=== PATIENT | female | born 1965 | race Caucasian/White ===

== ENCOUNTER 2017-02-10 15:58 | Emergency (ER) | payer SELFPAY ==
[~2017-02-10] VITALS: Ht 157.5 cm; Wt 63.0 kg
[2017-02-10 16:00] VITALS: BP 137/82; PULSE 90; RESP 24; TEMP 98.3; O2SAT 99
--- NOTE | 2017-02-10 16:14 | PD ---
HPI Chief Complaint: Pain: Acute or Chronic Time Seen by Provider: 16:14 Travel History International Travel<30 days: No Contact w/Intl Traveler<30days: No Traveled to known affect area: No History of Present Illness HPI 51-year-old female presents emergency Department with complaint of left knee pain after it gave out suddenly today. History of total knee replacement and she feels like her knee buckled laterally. Reports paresthesias from her knee down her left leg. Denies loss of sensation, decreased range of motion, decreased strength. Has been ambulatory on the affected extremity. Reports her knee feels very unsteady, especially with hyperextension when walking. Has not taken any medications or tried any treatments to alleviate her symptoms. Symptoms are mild in severity. Has no other medical complaints. Allergies to sulfa and tetracyclines. No other modifying factors or associated signs and symptoms. PFSH Past Medical History ?: Not Social History Tobacco Use: No Allergies-Medications (Allergen,Severity, Reaction): Coded Allergies: Sulfa (Sulfonamide Antibiotics) (Verified Allergy, Severe, Anaphylaxis, 02/10/17) Tetracyclines (Verified Allergy, Severe, Anaphylaxis, 02/10/17) Reported Meds & Prescriptions Reported Meds & Active Scripts Active Ibuprofen 800 Mg Tab 800 Mg PO Q6HR PRN Review of Systems Except as stated in HPI: all other systems reviewed are Neg Physical Exam Narrative GENERAL: Well-nourished, well-developed female patient, in no acute distress; afebrile, nontoxic-appearing SKIN: Warm and dry. HEAD: Atraumatic. Normocephalic. EYES: Pupils equal and round. No scleral icterus. No injection or drainage. ENT: Mucosa pink and moist. Airway patent. NECK: Trachea midline. CARDIOVASCULAR: Regular rate. RESPIRATORY: No accessory muscle use. GASTROINTESTINAL: Flat. MUSCULOSKELETAL: Left knee nonedematous, nonerythematous, and without ecchymosis ; full range of motion and flexion to 90; point tenderness to the lateral, medial, posterior, and patellar aspect; joint unstable with positive drawer test ; no obvious deformity. Left Lower extremity is supple and non-tense with 2+ pedal pulse and sensory intact and without erythema or edema. Ambulatory in the hallway with a limp to the left lower extremity. NEUROLOGICAL: Awake and alert. Oriented 3. No obvious cranial nerve deficits. Motor grossly within normal limits. Normal speech. PSYCHIATRIC: Appropriate mood and affect; insight and judgment normal. Data Data Last Documented VS Vital Signs Date Time Temp Pulse Resp B/P (MAP) Pulse Ox O2 Delivery O2 Flow Rate FiO2 02/10/17 16:00 98.3 90 24 137/82 (100) 99 Room Air Orders Orders Knee, Complete (4vws) (02/10/17 16:26) Crutches (02/10/17 16:26) Canvas Knee Splint (Cks) (02/10/17 ) Ketorolac Inj (Toradol Inj) (02/10/17 17:00) MDM Medical Decision Making Medical Screen Exam Complete: Yes Emergency Medical Condition: Yes Medical Record Reviewed: Yes Differential Diagnosis ACL tear, meniscal tear, knee sprain, medical instrumentation displacement Narrative Course 51-year-old female with left knee injury. She has positive drawer test and the joint is unstable on physical exam. History of total knee arthroplasty. Toradol administered in the ER. Left knee x-ray ordered. 1654: Left knee x-ray concludes total knee arthroplasty with all 3 components appropriately positioned; No fracture or effusion. Canvas in a splint and crutches provided for support. Ibuprofen prescribed for home. Instructed patient to follow up with primary care provider. Patient verbalizes understanding and agreement with treatment plan. Patient is medically cleared and stable for discharge. Discussed reasons to return to the emergency department. Patient agrees with treatment plan. The patients vital signs are stable and the patient is stable for outpatient follow-up and treatment. Patient discharged home, stable and in no acute distress. Diagnosis Primary Impression: Strain of left knee Qualified Codes: S86.912A - Strain of unspecified muscle(s) and tendon(s) at lower leg level, left leg, initial encounter Referrals: Orthopaedic Surgeon Primary Care Physician Patient Instructions: General Instructions, Knee Sprain (ED) Additional Instructions: Tylenol or ibuprofen as needed and as directed to reduce pain and inflammation Rest, ice, compress, and elevate extremity to decrease pain and inflammation Knee brace for support Crutches for support Avoid aggravating activity; increase activity as tolerated Follow-up with primary care provider Follow-up with orthopedics Return to the emergency department immediately with worsening symptoms Med/Other Pt SpecificInfo: Prescription(s) given Scripts Ibuprofen (Ibuprofen) 800 Mg Tab 800 MG PO Q6HR Y for PAIN, #30 TAB 0 Refills Prov: Prema Herrera 02/10/17 Disposition: 01 DISCHARGE HOME Condition: Stable Prema Herrera Feb 10, 2017 16:14
--- NOTE | 2017-02-10 16:48 | RADRPT ---
EXAM DATE/TIME: 02/10/2017 16:37 [facility] COMPARISON: No previous studies available for comparison. INDICATIONS : Left knee pain after knee popped out of place earlier. MEDICAL HISTORY : None. SURGICAL HISTORY : Left total knee. ENCOUNTER: Initial ACUITY: 1 day PAIN SCORE: 8/10 LOCATION: Left knee. FINDINGS: Four view examination of the left knee demonstrates a total knee arthroplasty. All 3 components are a ppropriately positioned. No effusion. CONCLUSION: Total knee arthroplasty. No fracture or effusion. Demetrius Curtis MD on February 10, 2017 at 16:45 Board Certified Radiologist. This report was verified electronically.
[2017-02-10] MEDS ORDERED: IBUP800T23 PO (16:57)
[2017-02-10] MEDS ORDERED: KETOROLAC TROMETHAMINE 60 MG/2 ML (IM) VIAL IM ONE (17:00)
== END 2017-02-10 17:40 | disposition home or self-care (01) ==
LOC: NEPK 15:58
DX: S86.912A Strain of unspecified muscle(s) and tendon(s) at lower leg level, left leg, initial encounter (principal); X50.9XXA Other and unspecified overexertion or strenuous movements or postures, initial encounter; Z96.652 Presence of left artificial knee joint
CPT/HCPCS: 73564; 96372; 99283; E0113; J1885; L1830